=== PATIENT | male | born 2000 | race Two or more races ===

== ENCOUNTER 2018-12-20 09:17 | Emergency (ER) | payer OTHER ==
[~2018-12-20] VITALS: Ht 180.3 cm; Wt 73.0 kg
[2018-12-20] MEDS ORDERED: ONDANSETRON HCL 4MG/2ML INJ IV STA (09:48)
[2018-12-20] MEDS ORDERED: SODIUM CHLORIDE 0.9% 1,000 ML IV ONE (09:48)
[2018-12-20] MEDS ORDERED: KETOROLAC 30MG/ML VIAL IV STA (09:48)
[2018-12-20 10:09] LABS: CHLORIDE 110 mEq/L (98-107)
[2018-12-20 10:13] LABS: ETHANOL BLOOD < 10 mg/dL
[2018-12-20 10:43] LABS: HEMATOCRIT. 49.4 % (42.0-52.0); HEMOGLOBIN. 16.2 g/dL (14.0-18.0); MEAN CORPUSCULAR HEMOGLOBIN 29.3 pg (28.0-32.0); MEAN CORPUSCULAR VOLUME 89.1 fL (80.0-94.0); MEAN PLATELET VOLUME 9.4 fl (7.4-10.4); PLATELET 219 x1000/uL (130-400); RED BLOOD CELL COUNT 5.54 mill/uL (4.7-6.1); RED CELL DISTRIBUTION WIDTH 14.8 % (11.6-14.6)
[2018-12-20 10:46] LABS: CLARITY URINE CLEAR (CLEAR); COLOR URINE YELLOW (YELLOW); KETONES URINE 4+ (NEGATIVE); LEUKOCYTE ESTERASE URINE NEGATIVE (NEGATIVE); NITRITE URINE NEGATIVE (NEGATIVE); OCCULT BLOOD URINE 1+ (NEGATIVE); PH URINE 5.5 (4.5-8.0); PROTEIN URINE TRACE (NEGATIVE); SPECIFIC GRAVITY URINE 1.032 (1.005-1.030)
[2018-12-20 11:24] LABS: PLATELET ESTIMATE NORMAL
[2018-12-20 13:53] VITALS: BP 118/68
== END 2018-12-20 13:56 | disposition home or self-care (01) ==
LOC: ER 09:17
DX: K29.20 Alcoholic gastritis without bleeding (principal); Y90.0 Blood alcohol level of less than 20 mg/100 ml; R19.7 Diarrhea, unspecified; F17.200 Nicotine dependence, unspecified, uncomplicated; F12.10 Cannabis abuse, uncomplicated
CPT/HCPCS: 36415; 71045; 76705; 80053; 80320; 81003; 83690; 85025; 96361; 96374; 96375; 99284; J1885; J2405; J7030; Z7610; G0480